=== PATIENT | female | born 1980 | race Caucasian/White ===

== ENCOUNTER 2020-08-29 20:10 | Emergency (ER) | payer SELFPAY ==
--- NOTE | 2020-08-29 20:52 | EDM.PDOC ---
ED HPI GENERAL MEDICAL PROBLEM - General Chief Complaint: Chest Pain Stated Complaint: CHEST PRESSURE NUMBNESS TO ARM AND LEG Time Seen by Provider: 08/29/20 20:18 Source of Information: Reports: Patient, RN Notes Reviewed History Limitations: Reports: No Limitations - History of Present Illness INITIAL COMMENTS - FREE TEXT/NARRATIVE: Patient is a 40-year-old female presenting to the emergency department with complaints of chest pressure and left arm and leg numbness. She states the left leg numbness has been going on for a number of weeks. Today upon waking, she has numbness in her left arm as well as chest pressure. She states is not really painful, but she has to make an effort to take a deep breath. 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 S She was started on gabapentin for this. he verbalized that when she had Covid last year, she also lost part of her hearing, however that did return. She also reports increased falls over the last few weeks. States she has been falling 1-2 times per week and that she often feels off balance. She has decreased sensation to her right and left upper extremities. States she has scratches on her right arm from working on a sushma wire fence and that she did not feel them when it happened. She does not feel sharp sensation to either of her upper extremities. Denies any motor deficits to the upper or lower extremities. States that her strength is the same. She had problems with intermittent extremity numbness with she had complex migraines, however it as been many years since she had those as they stopped when she had her hysterectomy. Patient has a history of numerous blood clots with a diagnosis factor V Leiden and she is currently on Coumadin. Her INR was last checked a few weeks ago. States she was scheduled to have it checked the end of last week, however she did not. Her primary care provider is Dr. Pearson in [place], [place]. Middle Chest Pain Score (Numeric/FACES): 4 - Related Data Allergies Allergy/AdvReac Type Severity Reaction Status Date / Time gluten Allergy Other Verified 08/29/20 20:21 Home Meds: Home Meds Amitriptyline [Elavil] 25 mg PO DAILY 08/29/20 [History] Citalopram Hydrobromide [Celexa] 20 mg PO DAILY 08/29/20 [History] Cyanocobalamin (Vitamin B12) [Vitamin B12] 2,000 mcg PO DAILY 08/29/20 [History] Gabapentin [Neurontin] 100 mg PO BEDTIME 08/29/20 [History] Propranolol [Inderal] 10 mg PO DAILY 08/29/20 [History] Warfarin [Coumadin] 5 mg PO SUMOFRSA 08/29/20 [History] Warfarin [Coumadin] 7.5 mg PO TUWETH 08/29/20 [History] Past Medical History Cardiovascular History: Reports: Hypertension Respiratory History: Reports: PE, Other (See Below) Other Respiratory History: pulmonary infarct Psychiatric History: Reports: Anxiety, Depression Hematologic History: Reports: Anticoagulation Therapy, B12 Deficiency - Past Surgical History Female Surgical History: Reports: Hysterectomy Social & Family History - Tobacco Use Tobacco Use Status *Q: Current Every Day Tobacco User Years of Tobacco use: 25 Packs/Tins Daily: 0.5 - Recreational Drug Use Recreational Drug Use: No ED ROS GENERAL - Review of Systems Review Of Systems: See Below Constitutional: Reports: No Symptoms. Denies: Fever, Chills HEENT: Reports: No Symptoms Respiratory: Reports: Shortness of Breath. Denies: Cough Cardiovascular: Reports: Chest Pain (pressure). Denies: Dyspnea on Exertion, Lightheadedness, Palpitations, Syncope Endocrine: Reports: No Symptoms GI/Abdominal: Reports: No Symptoms : Reports: No Symptoms Musculoskeletal: Reports: No Symptoms Neurological: Reports: Dizziness (intermittent for weeks), Numbness (left arm and left leg), Gait Disturbance (unsteady at times. Falls 1-2 x per week.). Denies: Confusion, Seizure, Syncope, Trouble Speaking, Difficulty Walking, Change in Speech Psychiatric: Reports: No Symptoms Hematologic/Lymphatic: Reports: No Symptoms Immunologic: Reports: No Symptoms ED EXAM, GENERAL - Physical Exam Exam: See Below Exam Limited By: No Limitations General Appearance: Alert, WD/WN, No Apparent Distress Respiratory/Chest: No Respiratory Distress, Lungs Clear, Normal Breath Sounds, No Accessory Muscle Use, Chest Non-Tender Cardiovascular: Normal Peripheral Pulses, Regular Rate, Rhythm, No Edema, No Gallop, No JVD, No Murmur, No Rub GI/Abdominal: Normal Bowel Sounds, Soft, Non-Tender, No Organomegaly, No Diste ntion, No Abnormal Bruit, No Mass Extremities: Normal Inspection, Normal Range of Motion, Non-Tender, Normal Capillary Refill, No Pedal Edema Neurological: Alert, Oriented, CN II-XII Intact, Normal Cognition, Normal Gait, Normal Reflexes, Other (decreased sensation to sharp stimulu of the bilateral upper extremities. Full, equal strength bilaterally to upper and lower extremities.) Psychiatric: Normal Affect, Normal Mood Skin Exam: Warm, Dry, Intact, Normal Color, No Rash #1 Interpretation EKG Date: 08/29/20 Time: 20:18 Rhythm: NSR Rate (Beats/Min): 96 [place]: LAD-Left [place] Deviation P-Wave: Present QRS: Normal ST-T: Normal QT: Normal Course - Vital Signs Last Recorded V/S: Last Vital Signs Temp 98.4 F 08/29/20 20:18 Pulse 86 08/29/20 22:03 Resp 24 H 08/29/20 22:03 BP 113/81 08/29/20 22:03 Pulse Ox 95 08/29/20 22:03 - Orders/Labs/Meds Orders: Active Orders 24 hr Category Date Time Status Chest 2V [CR] Stat Exams 08/29/20 20:22 Taken Head wo Cont [CT] Stat Exams 08/29/20 20:41 Taken Labs: Laboratory Tests 08/29/20 08/29/20 08/29/20 Range/Units 20:34 20:34 20:34 WBC 6.42 (3.98-10.04) K/mm3 RBC 4.55 (3.98-5.22) M/mm3 Hgb 13.1 (11.2-15.7) gm/dl Hct 40.9 (34.1-44.9) % MCV 89.9 (79.4-94.8) fl MCH 28.8 (25.6-32.2) pg MCHC 32.0 L (32.2-35.5) g/dl RDW Std Deviation 43.9 (36.4-46.3) fL Plt Count 262 (182-369) K/mm3 MPV 10.0 (9.4-12.3) fl Neut % (Auto) 39.0 (34.0-71.1) % Lymph % (Auto) 42.7 (19.3-51.7) % [place] % (Auto) 11.4 (4.7-12.5) % Eos % (Auto) 5.8 (0.7-5.8) Baso % (Auto) 0.9 (0.1-1.2) % Neut # (Auto) 2.51 (1.56-6.13) K/mm3 Lymph # (Auto) 2.74 (1.18-3.74) K/mm3 [place] # (Auto) 0.73 H (0.24-0.36) K/mm3 Eos # (Auto) 0.37 H (0.04-0.36) K/mm3 Baso # (Auto) 0.06 (0.01-0.08) K/mm3 ESR (0-20) mm/hr PT (9.7-12.0) SECONDS INR D-Dimer, Quantitative < 0.19 L (0.19-0.50) mg/L Sodium 144 (136-145) mEq/L Potassium 4.1 (3.5-5.1) mEq/L Chloride 107 (98-107) mEq/L Carbon Dioxide 25 (21-32) mEq/L Anion Gap 16.1 H (5-15) BUN 22 H (7-18) mg/dL Creatinine 1.0 (0.55-1.02) mg/dL Est Cr Clr Drug Dosing TNP Estimated GFR (MDRD) > 60 (>60) mL/min BUN/Creatinine Ratio 22.0 H (14-18) Glucose 113 H (74-106) mg/dL Calcium 9.4 (8.5-10.1) mg/dL Total Bilirubin 0.2 (0.2-1.0) mg/dL AST 17 (15-37) U/L ALT 30 (14-59) U/L Alkaline Phosphatase 86 (46-116) U/L Troponin I < 0.017 (0.00-0.056) ng/mL C-Reactive Protein < 0.2 (<1.0) mg/dL Total Protein 7.4 (6.4-8.2) g/dl Albumin 3.9 (3.4-5.0) g/dl Globulin 3.5 gm/dL Albumin/Globulin Ratio 1.1 (1-2) 08/29/20 08/29/20 Range/Units 20:34 20:34 WBC (3.98-10.04) K/mm3 RBC (3.98-5.22) M/mm3 Hgb (11.2-15.7) gm/dl Hct (34.1-44.9) % MCV (79.4-94.8) fl MCH (25.6-32.2) pg MCHC (32.2-35.5) g/dl RDW Std Deviation (36.4-46.3) fL Plt Count (182-369) K/mm3 MPV (9.4-12.3) fl Neut % (Auto) (34.0-71.1) % Lymph % (Auto) (19.3-51.7) % [place] % (Auto) (4.7-12.5) % Eos % (Auto) (0.7-5.8) Baso % (Auto) (0.1-1.2) % Neut # (Auto) (1.56-6.13) K/mm3 Lymph # (Auto) (1.18-3.74) K/mm3 [place] # (Auto) (0.24-0.36) K/mm3 Eos # (Auto) (0.04-0.36) K/mm3 Baso # (Auto) (0.01-0.08) K/mm3 ESR 9 (0-20) mm/hr PT 18.1 H (9.7-12.0) SECONDS INR 1.71 D-Dimer, Quantitative (0.19-0.50) mg/L Sodium (136-145) mEq/L Potassium (3.5-5.1) mEq/L Chloride (98-107) mEq/L Carbon Dioxide (21-32) mEq/L Anion Gap (5-15) BUN (7-18) mg/dL Creatinine (0.55-1.02) mg/dL Est Cr Clr Drug Dosing Estimated GFR (MDRD) (>60) mL/min BUN/Creatinine Ratio (14-18) Glucose (74-106) mg/dL Calcium (8.5-10.1) mg/dL Total Bilirubin (0.2-1.0) mg/dL AST (15-37) U/L ALT (14-59) U/L Alkaline Phosphatase (46-116) U/L Troponin I (0.00-0.056) ng/mL C-Reactive Protein (<1.0) mg/dL Total Protein (6.4-8.2) g/dl Albumin (3.4-5.0) g/dl Globulin gm/dL Albumin/Globulin Ratio (1-2) - Re-Assessments/Exams Free Text/Narrative Re-Assessment/Exam: Patient is a 40-year-old female presenting to the emergency department with complaints of left leg numbness which has been going on for a number of weeks, left arm numbness which began today, and chest pressure. She describes a number of other symptoms including lack of sharp sensation to her bilateral upper ext remities, neuropathy of her bilateral lower extremities, and increased falls for the last few weeks. She states that after she had Covid last year, she developed neuropathy and has been having these intermittent problems since that time. Her neurologic exam with the exception of sharp sensation is grossly unremarkable. Strength of her upper and lower extremities are equal and strong bilaterally. I have ordered blood work including CBC, CMP, CRP, ESR, D-dimer, PT/INR, and CRP. Also order chest x-ray and a head CT to be completed. 08/29/20 21:47 Hematology is grossly unremarkable. D-dimer and troponin are both undetectable. INR is subtherapeutic at 1.71. CRP is normal. Head CT shows no acute intracranial abnormalities. Chest x-ray is normal. Discussed with patient that I would recommend an outpatient MRI to assess for demyelinating condition such as MS or other neurologic abnormalities given her wide range of symptoms. Patient states that she does not have insurance right now, therefore she does not think she will be approved for an MRI. Unfortunately we do not have MRI services available here emergently. She states she will contact her primary care, Dr. Pearson, tomorrow to discuss her INR and adjust her Coumadin as the wide number of neurologic symptoms she is having. Discharge instructions as documented. Departure - Departure Time of Disposition: 21:50 Disposition: Home, Self-Care 01 Condition: Good Clinical Impression: Paresthesia Instructions: Paresthesia, [id number] Referrals: PCP,Not In Area [Primary Care Provider] - Forms: ED Department Discharge Additional Instructions: You were seen in the emergency department today for left leg numbness for the past few weeks, left arm numbness that started today, decreased sensation of your upper extremities, increasing falls over the last few weeks, and chest pressure. Work-up included blood work, EKG, chest x-ray, and head CT. Results of your work-up were found to be normal. Your INR is slightly subtherapeutic at 1.7, therefore would recommend contacting your primary care tomorrow to have your Coumadin dose adjusted as needed. I would also recommend discussing with him the need for an MRI given your wide range of neurologic symptoms. Continue take your medications as previously prescribed. If you should experience any new or worsening symptoms of concern, please do not hesitate to return to the emergency department for reevaluation. Sepsis Event Note (ED) - Evaluation Sepsis Screening Result: No Definite Risk - Focused Exam Vital Signs: Vital Signs Temp Pulse Resp BP Pulse Ox 08/29/20 22:03 86 24 H 113/81 95 08/29/20 20:18 98.4 F 93 17 122/83 96 - My Orders Last 24 Hours: My Active Orders 08/29/20 20:22 Chest 2V [CR] Stat 08/29/20 20:41 Head wo Cont [CT] Stat - Assessment/Plan Last 24 Hours: My Active Orders 08/29/20 20:22 Chest 2V [CR] Stat 08/29/20 20:41 Head wo Cont [CT] Stat
--- NOTE | 2020-08-30 07:41 | CT ---
Head CT Technique: Multiple axial sections through the brain were obtained. Intravenous contrast was not utilized. Comparison: No prior intracranial imaging is available. Findings: Ventricles along with basal cisterns and sulci over the convexities are within normal limits for the patient's age. No abnormal parenchymal densities are seen. No evidence of intracranial hemorrhage. No midline shift or mass-effect is appreciated. Minimal mucosal thickening is seen within the posterior sphenoid sinus which is chronic. Nothing acute is seen within the visualized mastoid sinuses. No acute calvarial abnormality is appreciated. Impression: 1. Minimal sinus finding believed to be chronic. 2. Nothing acute is appreciated on noncontrast head CT study. Diagnostic code #2 I agree with preliminary report from [facility], finalized on 08/29/20, 10:12 PM [employer]
--- NOTE | 2020-08-30 12:34 | CR ---
Chest: PA and lateral views of the chest were obtained. Comparison: No previous study. Heart size and mediastinum are normal. Lungs are clear of acute parenchymal change. Bony structures appear within normal limits for the patient's age. Impression: 1. Nothing acute is appreciated on to the chest x-ray. Diagnostic code #1
== END 2020-08-29 22:03 | disposition home or self-care (01) ==
LOC: JD.ED 20:10
DX: R20.2 Paresthesia of skin (principal); Z91.048 Other nonmedicinal substance allergy status; Z86.711 Personal history of pulmonary embolism; Z79.01 Long term (current) use of anticoagulants; Z79.899 Other long term (current) drug therapy; Z72.0 Tobacco use
CPT/HCPCS: 36415; 70450; 70450-26; 71046; 71046-26; 80053; 84484; 85025; 85379; 85610; 85652; 86140; 93005; 93010; 99284; 99285-25

== ENCOUNTER 2020-10-26 20:26 | Emergency (ER) | payer OTHER ==
[2020-10-26] MEDS ORDERED: Albuterol/Ipratropium 3.0-0.5 MG/3 ML Neb Soln NEB ONE (21:18)
--- NOTE | 2020-10-26 21:19 | EDM.PDOC ---
ED HPI GENERAL MEDICAL PROBLEM - General Chief Complaint: Respiratory Problem Stated Complaint: COUGH SOB Time Seen by Provider: 10/26/20 20:45 Source of Information: Reports: Patient, Family (Daughter) History Limitations: Reports: No Limitations - History of Present Illness INITIAL COMMENTS - FREE TEXT/NARRATIVE: Ms. Weir is a pleasant 40-year-old woman who now presents to the ED stating that she developed cold-like symptoms, including rhinorrhea and a sore throat this past 10/22/2020. She has been taking ibuprofen, Mucinex, DayQuil, and NyQuil, which she states worked for short period of time. Around 19:00 this evening, she states that she developed a cough productive of greenish sputum, along with dyspnea, slight wheezing, lightheadedness, and headache. Her pulmonary symptoms are not better or worse if she is upright versus supine. She has not had a recent fever. No recent nausea, vomiting, constipation, or diarrhea. The patient states that she has had similar dyspnea, coughing, and wheezing in the past. She states that she was diagnosed with COVID-19 in August 2019, and at that time treated with albuterol. She has a history of heavy smoking for 25 years, but does not have a diagnosis of COPD, and does not ordinarily take pulmonary medications. Here in the ED, the patient is found to be hemodynamically stable, afebrile, saturating 100% on room air. Prior to Thursday, the patient denies having a recent fever, chills, sore throat, ear pain, nasal or sinus congestion, cough, dyspnea, chest pain, palpitations, nausea, vomiting, constipation, diarrhea, abdominal pain, urinary symptoms, recent weight gain or weight loss, recent bloody bowel movements or black bowel movements, recent joint aches, headaches, or rashes. I reviewed the PMHx/PSHx/SocHx, which was reviewed with the patient by the RN. The patient's PCP is Dr. Sher Pearson, in [place], [place]. - Related Data Allergies Allergy/AdvReac Type Severity Reaction Status Date / Time gluten Allergy Other Verified 10/26/20 20:38 Home Meds: Home Meds Amitriptyline [Elavil] 25 mg PO DAILY 08/29/20 [History] Citalopram Hydrobromide [Celexa] 20 mg PO DAILY 08/29/20 [History] Cyanocobalamin (Vitamin B12) [Vitamin B12] 2,000 mcg PO DAILY 08/29/20 [History] Gabapentin [Neurontin] 100 mg PO BEDTIME 08/29/20 [History] Propranolol [Inderal] 10 mg PO DAILY 08/29/20 [History] Warfarin [Coumadin] 5 mg PO SUMOFRSA 08/29/20 [History] Warfarin [Coumadin] 7.5 mg PO TUWETH 08/29/20 [History] Past Medical History Cardiovascular History: Reports: Blood Clots/VTE/DVT, Hypertension 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 Psychiatric History: Reports: Anxiety, Depression Hematologic History: Reports: Anticoagulation Therapy, B12 Deficiency, Other (See Below) (Factor V Leiden deficiency) - Infectious Disease History Infectious Disease History: Reports: Novel Coronavirus (dx'd Aug 2019) - Past Surgical History Female Surgical History: Reports: Hysterectomy Social & Family History - Tobacco Use Tobacco Use Status *Q: Current Every Day Tobacco User Tobacco Use Within Last Twelve Months: Vaping (Nicotine) Years of Tobacco use: 25 Packs/Tins Daily: 1 Month/Year Tobacco Last Used: Started smoking at 15 yrs old - Alcohol Use Alcohol Use History: Yes Alcohol Use Frequency: Socially - Recreational Drug Use Recreational Drug Use: No - Living Situation & Occupation Living situation: Reports: , with Family Occupation: Employed ([employer]) ED ROS GENERAL - Review of Systems Review Of Systems: Comprehensive ROS is negative, except as noted in HPI. ED EXAM, GENERAL - Physical Exam Exam: See Below Exam Limited By: No Limitations General Appearance: Alert, WD/WN, No Apparent Distress Eye Exam: Bilateral Eye: EOMI, Normal Inspection Ears: Normal External Exam, Hearing Grossly Normal Nose: Normal Inspection Throat/Mouth: Normal Inspection, Normal Lips, Normal Voice, No Airway Compromise Head: Atraumatic, Normocephalic Neck: Normal Inspection, Supple, Non-Tender, Full Range of Motion. No: Lymphadenopathy (L), Lymphadenopathy (R) Respiratory/Chest: No Respiratory Distress, No Accessory Muscle Use, Crackles (fine bibasilar). No: Decreased Breath Sounds, Rhonchi, Wheezing, Stridor, Prolonged Expiration Cardiovascular: Normal Peripheral Pulses, Regular Rate, Rhythm, No Edema, No Gallop, No JVD, No Murmur, No Rub Peripheral Pulses: 3+: Radial (L), Radial (R) GI/Abdominal: Normal Bowel Sounds, Soft, Non-Tender, No Organomegaly, No Distention, No Abnormal Bruit, No Mass Back Exam: Normal Inspection, Full Range of Motion, NT Extremities: Normal Inspection, Normal Range of Motion, No Pedal Edema, Normal Capillary Refill Neurological: Alert, Oriented, Normal Cognition, No Motor/Sensory Deficits Psychiatric: Normal Affect Skin Exam: Warm, Dry, Intact, Normal Color, No Rash Course - Vital Signs Last Recorded V/S: Last Vital Signs Temp 36.4 C 10/26/20 20:39 Pulse 85 10/26/20 20:39 Resp 18 10/26/20 20:39 BP 111/78 10/26/20 20:39 Pulse Ox 100 10/26/20 21:41 - Orders/Labs/Meds Orders: Active Orders 24 hr Category Date Time Status RT Aerosol Therapy [RC] ASDIRECTED Care 10/26/20 21:18 Active Chest 2V [CR] Stat Exams 10/26/20 21:13 Taken Labs: Laboratory Tests 10/26/20 10/26/20 10/26/20 Range/Units 21:15 21:29 21:29 WBC 5.64 (3.98-10.04) K/mm3 RBC 4.04 (3.98-5.22) M/mm3 Hgb 11.8 (11.2-15.7) gm/dl Hct 36.5 (34.1-44.9) % MCV 90.3 (79.4-94.8) fl MCH 29.2 (25.6-32.2) pg MCHC 32.3 (32.2-35.5) g/dl RDW Std Deviation 43.4 (36.4-46.3) fL Plt Count 221 (182-369) K/mm3 MPV 10.2 (9.4-12.3) fl Neutrophils % (Manual) 45 (40-60) % Band Neutrophils % 2 (0-10) % Lymphocytes % (Manual) 38 (20-40) % Atypical Lymphs % 0 % Monocytes % (Manual) 9 (2-10) % Eosinophils % (Manual) 6 H (0.7-5.8) % Basophils % (Manual) 0 L (0.1-1.2) Platelet Estimate Adequate RBC Morph Comment Normal PT 13.9 H (9.7-12.0) SECONDS INR 1.31 APTT 26.8 (21.7-31.4) SECONDS D-Dimer, Quantitative < 0.19 L (0.19-0.50) mg/L Sodium (136-145) mEq/L Potassium (3.5-5.1) mEq/L Chloride (98-107) mEq/L Carbon Dioxide (21-32) mEq/L Anion Gap (5-15) BUN (7-18) mg/dL Creatinine (0.55-1.02) mg/dL Est Cr Clr Drug Dosing mL/min Estimated GFR (MDRD) (>60) mL/min BUN/Creatinine Ratio (14-18) Glucose (74-106) mg/dL Lactic Acid (0.4-2.0) mmol/L Calcium (8.5-10.1) mg/dL Magnesium (1.8-2.4) mg/dl Total Bilirubin (0.2-1.0) mg/dL AST (15-37) U/L ALT (14-59) U/L Alkaline Phosphatase (46-116) U/L Total Protein (6.4-8.2) g/dl Albumin (3.4-5.0) g/dl Globulin gm/dL Albumin/Globulin Ratio (1-2) Influenza Type A RNA Negative (NEGATIVE) Influenza Type B RNA Negative (NEGATIVE) SARS-CoV-2 RNA (BRAD) Negative (NEGATIVE) 10/26/20 10/26/20 Range/Units 21:29 21:29 WBC (3.98-10.04) K/mm3 RBC (3.98-5.22) M/mm3 Hgb (11.2-15.7) gm/dl Hct (34.1-44.9) % MCV (79.4-94.8) fl MCH (25.6-32.2) pg MCHC (32.2-35.5) g/dl RDW Std Deviation (36.4-46.3) fL Plt Count (182-369) K/mm3 MPV (9.4-12.3) fl Neutrophils % (Manual) (40-60) % Band Neutrophils % (0-10) % Lymphocytes % (Manual) (20-40) % Atypical Lymphs % % Monocytes % (Manual) (2-10) % Eosinophils % (Manual) (0.7-5.8) % Basophils % (Manual) (0.1-1.2) Platelet Estimate RBC Morph Comment PT (9.7-12.0) SECONDS INR APTT (21.7-31.4) SECONDS D-Dimer, Quantitative (0.19-0.50) mg/L Sodium 142 (136-145) mEq/L Potassium 3.4 L (3.5-5.1) mEq/L Chloride 107 (98-107) mEq/L Carbon Dioxide 20 L (21-32) mEq/L Anion Gap 18.4 H (5-15) BUN 19 H (7-18) mg/dL Creatinine 0.8 (0.55-1.02) mg/dL Est Cr Clr Drug Dosing 91.81 mL/min Estimated GFR (MDRD) > 60 (>60) mL/min BUN/Creatinine Ratio 23.8 H (14-18) Glucose 90 (74-106) mg/dL Lactic Acid 1.2 (0.4-2.0) mmol/L Calcium 8.7 (8.5-10.1) mg/dL Magnesium 2.2 (1.8-2.4) mg/dl Total Bilirubin 0.4 (0.2-1.0) mg/dL AST 17 (15-37) U/L ALT 24 (14-59) U/L Alkaline Phosphatase 58 (46-116) U/L Total Protein 6.5 (6.4-8.2) g/dl Albumin 3.6 (3.4-5.0) g/dl Globulin 2.9 gm/dL Albumin/Globulin Ratio 1.2 (1-2) Influenza Type A RNA (NEGATIVE) Influenza Type B RNA (NEGATIVE) SARS-CoV-2 RNA (BRAD) (NEGATIVE) Meds: Medications Discontinued Medications Generic Name Dose Route Start Last Admin Trade Name Freq PRN Reason Stop Dose Admin Albuterol/Ipratropium 3 ml 10/26/20 21:18 10/26/20 21:39 Albuterol/Ipratropium 3.0-0.5 Mg/3 Ml Neb Soln NEB 10/26/20 21:19 3 ml ONETIME ONE Administration - Re-Assessments/Exams Free Text/Narrative Re-Assessment/Exam: 10/26/20 21:16 As above, the patient had cold symptoms, including rhinorrhea and a sore throat since Thursday, then developed a cough productive of greenish sputum, dyspnea, and some wheezing, along with lightheadedness and a headache around 19:00 this evening. She is afebrile, saturating 100% on room air. Her physical exam reveals some fine end-expiratory wheezing, particularly at the bases. She is likely suffering from acute bronchitis, although her long history of smoking leads to concern of a COPD exacerbation, as well. I have ordered a work-up that includes numerous blood tests, a swab for the SARS-CoV-2 virus and influenza A + B viruses, and a chest x-ray. In the meantime, the patient will be given a DuoNeb, to see if that improves her wheezing. 10/26/20 21:46 Two-view chest radiograph appears to be grossly normal. The cardiac silhouette is within normal limits. No pulmonary vascular congestion. No pleural effusions. No focal infiltrate. No pneumothorax. There is hyperinflation and bilateral diaphragmatic flattening, consistent with COPD. Formal read per the Radiologist pending. 10/26/20 22:39 The patient's CBC is unremarkable. Her CMP is remarkable for slight hypokalemia of 3.4, and anion gap mildly elevated at 18.4 with a bicarbonate mildly depressed at 20, a BUN slightly elevated at 19, but with a Cr normal at 0.8, and the remainder of her CMP being unremarkable. Her magnesium level is within normal limits at 2.2. Her lactic acid level is within normal limits at 1.2. Her D-dimer is undetectably low. Her INR is subtherapeutic at 1.39, with a PT of 13.9. Her swab for the SARS-CoV-2 virus and influenza A + B viruses has returned negative for all. 10/26/20 22:46 Test results discussed with the patient and her daughter. The patient states that she feels better following the DuoNeb, and is no longer wheezing. On auscultation of her lungs, I agree; I no longer hear any wheezing. As above, hillary's work-up is grossly unremarkable. While I cannot diagnose COPD based on a chest x-ray or history, I suspect that the patient has mild COPD, exacerbated by a viral URI. I explained to the patient that there are no treatments for viral URI, that it will have to run its course. I recommended that she do her best to quit smoking, and, once she gets insurance in a couple of months, to establish a PCP and undergo PFTs to confirm a diagnosis of COPD. Departure - Departure Time of Disposition: 22:49 Disposition: Home, Self-Care 01 Condition: Good Clinical Impression: Viral URI with cough - Discharge Information *PRESCRIPTION DRUG MONITORING PROGRAM REVIEWED*: Not Applicable *COPY OF PRESCRIPTION DRUG MONITORING REPORT IN PATIENT DARLENE: Not Applicable Referrals: Sher Pearson, [Primary Care Provider] - Forms: ED Department Discharge, ED Return to Work/School Form Additional Instructions: You were seen in the emergency room after developing cold-like symptoms on Thursday, then shortness of breath with a cough, wheezing, lightheadedness, and headache this evening. Work-up in the ER included numerous blood tests, a swab for the SARS-CoV-2 virus and influenza A + B viruses, and a chest x-ray. Your work-up found your INR (Coumadin level) to be subtherapeutic at 1.39. We recommend that you discuss this with whoever prescribes your Coumadin, as you will likely need to be on a higher dose. The remainder of your work-up was unremarkable. You do not have pneumonia. You do not have a blood clot in your lungs. Your swab for the SARS-CoV-2 virus and influenza A + B viruses returned negative. Based on your history, physical exam, and ER tests, we suspect that you have mild underlying COPD, exacerbated by a viral URI (common cold). Unfortunately, there are no medicines to get rid of a viral URI - it will have to run its course. We recommend that, when possible, you follow-up with your PCP to arrange for pulmonary function tests, to determine if you have COPD or not. An albuterol MDI and space chamber were provided to you. You may take 1 to 2 inhalations of albuterol up to every 4 hours, as needed for shortness of breath and wheezing, with or without a cough. Always use the space chamber whenever you use the MDI. A note to return to work has been provided to you. If any other problems, please do not hesitate to return to the ER. Sepsis Event Note (ED) - Evaluation Sepsis Screening Result: No Definite Risk - Focused Exam Vital Signs: Vital Signs Temp Pulse Resp BP Pulse Ox Pulse Ox 10/26/20 21:41 100 10/26/20 20:39 36.4 C 85 18 111/78 100 - My Orders Last 24 Hours: My Active Orders 10/26/20 21:13 Chest 2V [CR] Stat 10/26/20 21:18 RT Aerosol Therapy [RC] ASDIRECTED - Assessment/Plan Last 24 Hours: My Active Orders 10/26/20 21:13 Chest 2V [CR] Stat 10/26/20 21:18 RT Aerosol Therapy [RC] ASDIRECTED
[2020-10-26 22:14] LABS: CORONAVIRUS COVID-19 NAA NEGATIVE (NEGATIVE)
[2020-10-26] MEDS ORDERED: Albuterol 6.7 GM Inhaler INH PRN (22:56)
--- NOTE | 2020-10-28 09:13 | CR ---
Chest: 2 views of the chest were obtained. Comparison: Prior chest x-ray of 08/29/20. Heart size and mediastinum are within normal limits. Lung markings are slightly increased which is most likely technique related. No acute parenchymal change is seen. Minimal scoliosis is noted within the spine. No acute osseous abnormality is appreciated. Impression: 1. Findings as noted above. 2. Nothing acute is definitely seen. Diagnostic code #2
== END 2020-10-26 23:08 | disposition home or self-care (01) ==
LOC: JD.ED 20:26
DX: J06.9 Acute upper respiratory infection, unspecified (principal); I10 Essential (primary) hypertension; F17.290 Nicotine dependence, other tobacco product, uncomplicated; Z20.822 Contact with and (suspected) exposure to COVID-19; Z91.048 Other nonmedicinal substance allergy status; Z79.01 Long term (current) use of anticoagulants; Z79.899 Other long term (current) drug therapy; Z86.718 Personal history of other venous thrombosis and embolism
CPT/HCPCS: 0240U; 36415; 71046; 80053; 83605; 83735; 85007; 85027; 85379; 85610; 85730; 94640; 99285; A9270; 99283; J7620-GY

== ENCOUNTER 2020-11-21 06:00 | Emergency (ER) | payer SELFPAY ==
[2020-11-21] MEDS ORDERED: Ketorolac 30 MG/ML SDV IVPUSH SCH (06:45)
--- NOTE | 2020-11-21 07:05 | EDM.PDOC ---
ED HPI GENERAL MEDICAL PROBLEM - General Chief Complaint: Chest Pain Stated Complaint: CHEST PAIN SOB Time Seen by Provider: 11/21/20 06:23 Source of Information: Reports: Patient, RN Notes Reviewed - History of Present Illness INITIAL COMMENTS - FREE TEXT/NARRATIVE: 40 yr old female had onset of R shoulder pain 3 days ago. Onset of pleuritic pain R upper chest last evening worse this morning. She does have hx of PE about 5 yrs ago, continues on coumadin. She also does smoke so does have chronic nonprod. cough with that. No recent fever or chills. Did feel short of breath earlier this AM, now better. Right Chest Pain Score (Numeric/FACES): 7 - Related Data Allergies Allergy/AdvReac Type Severity Reaction Status Date / Time gluten Allergy Other Verified 11/21/20 06:12 Home Meds: Home Meds Amitriptyline [Elavil] 25 mg PO DAILY 08/29/20 [History] Citalopram Hydrobromide [Celexa] 20 mg PO DAILY 08/29/20 [History] Cyanocobalamin (Vitamin B12) [Vitamin B12] 2,000 mcg PO DAILY 08/29/20 [History] Warfarin [Coumadin] 5 mg PO MOFRSA 08/29/20 [History] Warfarin [Coumadin] 7.5 mg PO SUTUWETH 08/29/20 [History] Past Medical History Cardiovascular History: Reports: Blood Clots/VTE/DVT, Hypertension Respiratory History: Reports: PE, Other (See Below) Other Respiratory History: pulmonary infarct, Possible COPD needs PFT's Other Gastrointestinal History: gluten ataxia 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 (See Below) Other EARLY CHILDHOOD EDUCATION COORDINATOR History: PMDD Other Musculoskeletal History: gluten ataxia Psychiatric History: Reports: Anxiety, Depression Hematologic History: Reports: Anticoagulation Therapy, B12 Deficiency, Other (See Below) 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 - Infectious Disease History Infectious Disease History: Reports: Novel Coronavirus - Past Surgical History Female Surgical History: Reports: Hysterectomy Social & Family History - Tobacco Use Tobacco Use Status *Q: Current Every Day Tobacco User Years of Tobacco use: 25 Packs/Tins Daily: 0.5 - Recreational Drug Use Recreational Drug Use: No - Living Situation & Occupation Living situation: Reports: , with Family Occupation: Employed ([employer] ED ROS GENERAL - Review of Systems Review Of Systems: See Below Constitutional: Denies: Fever, Chills, Diaphoresis HEENT: Reports: No Symptoms Respiratory: Reports: Pleuritic Chest Pain, Cough. Denies: Sputum Cardiovascular: Reports: Chest Pain GI/Abdominal: Denies: Abdominal Pain, Nausea, Vomiting Musculoskeletal: Reports: Shoulder Pain. Denies: Arm Pain, Back Pain Skin: Reports: No Symptoms Neurological: Reports: No Symptoms ED EXAM, GENERAL - Physical Exam Exam: See Below General Appearance: Alert, No Apparent Distress Head: Atraumatic Neck: Supple Respiratory/Chest: No Respiratory Distress, Lungs Clear, Normal Breath Sounds, Other (tender R ant. chest) Cardiovascular: Regular Rate, Rhythm GI/Abdominal: Soft, Non-Tender Extremities: Normal Inspection, Normal Range of Motion. No: Leg Pain, Increased Warmth, Redness Neurological: Alert, Oriented, No Motor/Sensory Deficits Skin Exam: Warm, Dry, Normal Color #1 Interpretation EKG Date: 11/21/20 Rhythm: NSR Toyah: Normal P-Wave: Present QRS: Normal ST-T: Depressed (t wave inversion inf. leads and slight st depression inf. leads) Course - Vital Signs Last Recorded V/S: Last Vital Signs Temp 97.2 F 11/21/20 06:12 Pulse 86 11/21/20 06:12 Resp 19 11/21/20 06:12 BP 109/85 11/21/20 06:12 Pulse Ox 100 11/21/20 06:12 - Orders/Labs/Meds Orders: Active Orders 24 hr Category Date Time Status EKG Documentation Completion [RC] ASDIRECTED Care 11/21/20 06:04 Active Ketorolac [Toradol] Med 11/21/20 06:45 Active 30 mg IVPUSH ONETIME EKG 12 Lead [EK] Stat Ther 11/21/20 06:04 Ordered Medication Orders Ketorolac Tromethamine (Ketorolac 30 Mg/Ml Sdv) 30 mg IVPUSH ONETIME [facility] Last Admin: 11/21/20 06:46 Dose: 30 mg Documented by: LAKEISHA Labs: Laboratory Tests 11/21/20 11/21/20 Range/Units 06:34 06:34 PT 24.3 H D (9.7-12.0) SECONDS INR 2.31 D-Dimer, Quantitative < 0.19 L (0.19-0.50) mg/L Meds: Medications Generic Name Dose Route Start Last Admin Trade Name Arthur PRN Reason Stop Dose Admin Ketorolac Tromethamine 30 mg 11/21/20 06:45 11/21/20 06:46 Ketorolac 30 Mg/Ml Sdv IVPUSH 30 mg ONETIME BG Administration - Re-Assessments/Exams Free Text/Narrative Re-Assessment/Exam: 11/21/20 07:51 CXR nl, EKG nl, D Dimer neg. INR therapeutic Departure - Departure Time of Disposition: 07:30 Disposition: Home, Self-Care 01 Condition: Fair Clinical Impression: Chest wall pain, Pleurisy Instructions: Pleurisy, [id number] Referrals: PCP,Not In Area [Primary Care Provider] - Forms: ED Department Discharge Additional Instructions: Alternate ice and heat as needed, tylenol up to 3 times daily as needed. Try hard to stop smoking. Follow up clinic as needed if symptoms not resolving as expected. Sepsis Event Note (ED) - Evaluation Sepsis Screening Result: No Definite Risk - Focused Exam Vital Signs: Vital Signs Temp Pulse Resp BP Pulse Ox 11/21/20 06:12 97.2 F 86 19 109/85 100 - My Orders Last 24 Hours: My Active Orders 11/21/20 06:04 EKG Documentation Completion [RC] ASDIRECTED EKG 12 Lead [EK] Stat 11/21/20 06:45 Ketorolac [Toradol] 30 mg IVPUSH ONETIME - Assessment/Plan Last 24 Hours: My Active Orders 11/21/20 06:04 EKG Documentation Completion [RC] ASDIRECTED EKG 12 Lead [EK] Stat 11/21/20 06:45 Ketorolac [Toradol] 30 mg IVPUSH ONETIME
--- NOTE | 2020-11-21 07:34 | CR ---
Chest: AP view of the chest was obtained. Comparison: Prior chest x-ray on 10/26/20. Heart size and mediastinum are normal. Minimal atelectasis is seen within the left lateral costophrenic angle. Lungs otherwise are clear . No acute osseous abnormality is appreciated. Impression: 1. Minimal left basilar atelectasis. 2. Nothing acute is appreciated on frontal chest x-ray. Diagnostic code #2
== END 2020-11-21 07:56 | disposition home or self-care (01) ==
LOC: JD.ED 06:00
DX: R09.1 Pleurisy (principal); I10 Essential (primary) hypertension; Z72.0 Tobacco use; Z91.048 Other nonmedicinal substance allergy status
CPT/HCPCS: 36415; 71045; 85379; 85610; 93005; 96374; 99284; J1885; 93010

== ENCOUNTER 2021-05-18 09:55 | Emergency (ER) | payer BC ==
[2021-05-18] MEDS ORDERED: Sodium Chloride 0.9% 10 ML Syringe FLUSH PRN (10:21)
[2021-05-18] MEDS ORDERED: Sodium Chloride 0.9% 1,000 ML IV SCH (10:30)
[2021-05-18] MEDS ORDERED: Ondansetron 4 MG/2 ML SDV IVPUSH ONE (10:30)
[2021-05-18] MEDS ORDERED: HYDROmorphone 0.5 MG/0.5 ML Syringe IVPUSH ONE (10:31)
--- NOTE | 2021-05-18 11:57 | US ---
Limited abdominal ultrasound: Multiple real-time images of the upper right abdomen were obtained. Comparison: No prior abdominal imaging is available. Findings: Pancreas shows no focal abnormality. Liver shows no abnormality. No biliary duct dilatation is seen. Small hyperechoic abnormality is seen within the cortex of the right kidney measuring 5 mm possibly due to a small calcification. Right kidney shows no hydronephrosis or discrete mass. Proximal aorta shows no aneurysm. Small amount of intraluminal debris appears to be present within the proximal inferior vena cava raising the possibility of mild amount of nonoccluding thrombus. Main portal vein shows normal hepatopedal flow. Impression: 1. Findings suspicious for small amount of non-occlusive thrombus within the proximal inferior vena cava. 2. Small calcification felt to be parenchymal in locality within the right kidney. 3. Other portions of the right upper quadrant abdominal ultrasound are unremarkable. Diagnostic code #3
[2021-05-18] MEDS ORDERED: HYDROmorphone 1 MG/ML Syringe IVPUSH ONE (12:51)
--- NOTE | 2021-05-18 13:21 | EDM.PDOC ---
ED HPI GENERAL MEDICAL PROBLEM - General Chief Complaint: Abdominal Pain Stated Complaint: ABDOMINAL PAIN Time Seen by Provider: 05/18/21 10:23 Source of Information: Reports: Patient History Limitations: Reports: No Limitations - History of Present Illness INITIAL COMMENTS - FREE TEXT/NARRATIVE: The patient presents with epigastric and right upper abdominal pain. This started this morning. She dis have pain to her mid back a couple days ago. She had some nausea and vomiting. She has no fever, chills or cough. She has no dysuria or diarrhea. She has a history of a clotting disorder. She is on a blood thinner. 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 Onset: Gradual Duration: Hour(s): Location: Reports: Abdomen, Back Quality: Reports: Sharp Severity: Severe Improves with: Reports: None Worsens with: Reports: None Associated Symptoms: Reports: Nausea/Vomiting. Denies: Cough, Fever/Chills, Headaches, Shortness of Breath Abdominal Pain Score (Numeric/FACES): 8 - Related Data Allergies Allergy/AdvReac Type Severity Reaction Status Date / Time gluten Allergy Other Verified 05/18/21 10:13 Home Meds: Home Meds Amitriptyline [Elavil] 25 mg PO DAILY 08/29/20 [History] Citalopram Hydrobromide [Celexa] 20 mg PO DAILY 08/29/20 [History] Cyanocobalamin (Vitamin B12) [Vitamin B12] 2,000 mcg PO DAILY 08/29/20 [History] Hydrocodone/Acetaminophen [Hydrocodone-Acetamin 5-325 mg] 1 - 2 each PO Q6H PRN #15 tablet 05/18/21 [Rx] Propranolol [Inderal] 10 mg PO BID 05/18/21 [History] Rivaroxaban [Xarelto] 10 mg PO DAILY 05/18/21 [History] Past Medical History Cardiovascular History: Reports: Blood Clots/VTE/DVT, Hypertension Respiratory History: Reports: PE, Other (See Below) Other Respiratory History: pulmonary infarct, Other Gastrointestinal History: gluten ataxia BRICK SORTER History: Reports: Other (See Below) Other BRICK SORTER History: PMDD Other Musculoskeletal History: gluten ataxia Psychiatric History: Reports: Anxiety, Depression Hematologic History: Reports: Anticoagulation Therapy, B12 Deficiency, Other (See Below) 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 - Infectious Disease History Infectious Disease History: Reports: Novel Coronavirus - Past Surgical History HEENT Surgical History: Reports: Other (See Below) Other HEENT Surgeries/Procedures: septum repair Female Surgical History: Reports: Hysterectomy Social & Family History - Tobacco Use Tobacco Use Status *Q: Current Every Day Tobacco User Years of Tobacco use: 26 Packs/Tins Daily: 0.5 - Caffeine Use Caffeine Use: Reports: Coffee, Energy Drinks, Soda, Tea - Recreational Drug Use Recreational Drug Use: No - Living Situation & Occupation Living situation: Reports: , with Family Occupation: Employed ([employer]) ED ROS GENERAL - Review of Systems Review Of Systems: See Below Constitutional: Reports: No Symptoms HEENT: Reports: No Symptoms Respiratory: Reports: No Symptoms Cardiovascular: Reports: No Symptoms Endocrine: Reports: No Symptoms GI/Abdominal: Reports: Abdominal Pain, Nausea, Vomiting Musculoskeletal: Reports: Back Pain ED EXAM, GI/ABD - Physical Exam Exam: See Below Exam Limited By: No Limitations General Appearance: Alert, No Apparent Distress Ears: Normal External Exam Nose: Normal Inspection Head: Atraumatic, Normocephalic Neck: Normal Inspection Respiratory/Chest: No Respiratory Distress, Lungs Clear, Normal Breath Sounds Cardiovascular: Regular Rate, Rhythm, No Edema, No Murmur GI/Abdominal Exam: Soft, No Organomegaly, No Mass, Tender (Moderate tenderness to the upper abdomen and RUQ) Course - Vital Signs Last Recorded V/S: Last Vital Signs Temp 97.4 F 05/18/21 10:16 Pulse 85 05/18/21 10:16 Resp 83 H 05/18/21 10:16 BP 124/84 05/18/21 10:16 Pulse Ox 100 05/18/21 10:16 - Orders/Labs/Meds Orders: Active Orders 24 hr Category Date Time Status Communication Order [RC] ASDIRECTED Care 05/18/21 10:22 Active Communication Order [RC] ASDIRECTED Care 05/18/21 10:22 Active Communication Order [RC] ASDIRECTED Care 05/18/21 10:22 Active Communication Order [RC] PER UNIT ROUTINE Care 05/18/21 10:22 Active Peripheral IV Care [RC] . DIRECTED Care 05/18/21 10:22 Active Chest Abdomen Pelvis w Cont [CT] Stat Exams 05/18/21 12:23 Taken Sodium Chloride 0.9% [Normal Saline] 1,000 ml Med 05/18/21 10:30 Active IV ASDIRECTED Sodium Chloride 0.9% [Saline Flush] Med 05/18/21 10:21 Active 10 ml FLUSH ASDIRECTED PRN ED Antiemetic Medication Reflex [OM.PC] Stat Oth 05/18/21 10:30 Ordered Peripheral IV Insertion Adult [OM.PC] Stat Ot 05/18/21 10:22 Ordered Medication Orders Sodium Chloride (Normal Saline) 1,000 mls @ 150 mls/hr IV ASDIRECTED BG Last Admin: 05/18/21 10:35 Dose: 150 mls/hr Documented by: YONI Sodium Chloride (Sodium Chloride 0.9% 10 Ml Syringe) 10 ml FLUSH ASDIRECTED PRN PRN Reason: Keep Vein Open Last Admin: 05/18/21 10:41 Dose: 10 ml Documented by: SHAILA Labs: Laboratory Tests 05/18/21 05/18/21 05/18/21 Range/Units 10:15 10:15 12:11 WBC 4.80 (3.98-10.04) K/mm3 RBC 4.51 (3.98-5.22) M/mm3 Hgb 13.4 D (11.2-15.7) gm/dl Hct 40.6 (34.1-44.9) % MCV 90.0 (79.4-94.8) fl MCH 29.7 (25.6-32.2) pg MCHC 33.0 (32.2-35.5) g/dl RDW Std Deviation 42.5 (36.4-46.3) fL Plt Count 241 (182-369) K/mm3 MPV 9.9 (9.4-12.3) fl Neut % (Auto) 36.7 (34.0-71.1) % Lymph % (Auto) 47.7 (19.3-51.7) % [place] % (Auto) 11.7 (4.7-12.5) % Eos % (Auto) 3.3 (0.7-5.8) Baso % (Auto) 0.4 (0.1-1.2) % Neut # (Auto) 1.76 (1.56-6.13) K/mm3 Lymph # (Auto) 2.29 (1.18-3.74) K/mm3 [place] # (Auto) 0.56 H (0.24-0.36) K/mm3 Eos # (Auto) 0.16 (0.04-0.36) K/mm3 Baso # (Auto) 0.02 (0.01-0.08) K/mm3 Sodium 140 (136-145) mEq/L Potassium 4.0 (3.5-5.1) mEq/L Chloride 102 (98-107) mEq/L Carbon Dioxide 27 (21-32) mEq/L Anion Gap 15.0 (5-15) BUN 24 H (7-18) mg/dL Creatinine 0.8 (0.55-1.02) mg/dL Est Cr Clr Drug Dosing 90.90 mL/min Estimated GFR (MDRD) > 60 (>60) mL/min BUN/Creatinine Ratio 30.0 H (14-18) Glucose 92 (70-99) mg/dL Calcium 9.9 (8.5-10.1) mg/dL Magnesium 2.1 (1.8-2.4) mg/dL Total Bilirubin 0.4 (0.2-1.0) mg/dL AST 16 (15-37) U/L ALT 30 (14-59) U/L Alkaline Phosphatase 58 (46-116) U/L C-Reactive Protein <0.2 (<1.0) mg/dL Total Protein 7.9 (6.4-8.2) g/dl Albumin 4.6 (3.4-5.0) g/dl Globulin 3.3 gm/dL Albumin/Globulin Ratio 1.4 (1-2) Lipase 146 (73-393) U/L Urine Color Yellow (Yellow) Urine Appearance Clear (Clear) Urine pH 8.5 H (5.0-8.0) Ur Specific [place] 1.015 (1.005-1.030) Urine Protein 2+ H (Negative) Urine Glucose (UA) Negative (Negative) Urine Ketones Negative (Negative) Urine Occult Blood Negative (Negative) Urine Nitrite Negative (Negative) Urine Bilirubin Negative (Negative) Urine Urobilinogen 0.2 (0.2-1.0) Ur Leukocyte Esterase Negative (Negative) Urine RBC 0-5 (0-5) /hpf Urine WBC 0-5 (0-5) /hpf Ur Squamous Epith Cells 0-5 (0-5) /hpf Amorphous Sediment Few H (NOT SEEN) /hpf Urine Bacteria Few (FEW) /hpf Urine Mucus Few (FEW) /hpf Meds: Medications Generic Name Dose Route Start Last Admin Trade Name Arthur PRN Reason Stop Dose Admin Sodium Chloride 1,000 mls @ 150 mls/hr 05/18/21 10:30 05/18/21 10:35 Normal Saline IV 150 mls/hr ASDIRECTED BG Administration Sodium Chloride 10 ml 05/18/21 10:21 05/18/21 10:41 Sodium Chloride 0.9% 10 Ml Syringe FLUSH 10 ml ASDIRECTED PRN Administration Keep Vein Open Discontinued Medications Generic Name Dose Route Start Last Admin Trade Name Arthur PRN Reason Stop Dose Admin Hydromorphone HCl 0.5 mg 05/18/21 10:31 05/18/21 10:39 Hydromorphone 0.5 Mg/0.5 Ml Syringe IVPUSH 05/18/21 10:32 0.5 mg ONETIME ONE Administration Hydromorphone HCl 1 mg 05/18/21 12:51 05/18/21 12:55 Hydromorphone 1 Mg/Ml Syringe IVPUSH 05/18/21 12:52 1 mg ONETIME ONE Administration Sodium Chloride 100 mls @ 4 mls/sec 05/18/21 13:37 05/18/21 13:39 Normal Saline IV 05/18/21 13:38 4 mls/sec ONETIME ONE Administration Iopamidol 120 ml 05/18/21 13:36 Iopamidol 755 Mg/Ml 200 Ml Bottle IV 05/18/21 13:37 ONETIME ONE Iopamidol 120 ml 05/18/21 13:38 05/18/21 13:39 Iopamidol 755 Mg/Ml 100 Ml Bottle IVPUSH 05/18/21 13:39 120 ml ONETIME ONE Administration Ondansetron HCl 4 mg 05/18/21 10:30 05/18/21 10:37 Ondansetron 4 Mg/2 Ml Sdv IVPUSH 05/18/21 10:31 4 mg ONETIME ONE Administration - Re-Assessments/Exams Free Text/Narrative Re-Assessment/Exam: 05/18/21 14:53 I ordered an IV NS 1L bolus, labs, urine and a gallbladder US. I also gave her dilaudid and zofran 4mg IV. Her CBC, CMP and UA look good. Her US shows findings suspicious for small amount of non-occlusive thrombus within the proximal inferior vena cava. Small calcification felt to be parenchymal in locality within the right kidney. Other portions of the right upper quadrant abdominal US are unremarkable. I have ordered a CT angio of her chest and abdomen. The CT of her chest shows unremarkable CT angiogram of the chest. Specifically, no cardiac or IVC thrombus is seen. The CT of her abdomen and pelvis shows unremarkable CT angiogram of the abdomen and pelvis. Specifically no IVC thrombus is identified. She feels better but she is not happy. We do not have a diagnosis and she thought she had a blood clot. I will discharge her home and she wanted copies of the films. I will give then to her. Departure - Departure Time of Disposition: 15:00 Disposition: Home, Self-Care 01 Condition: Good Clinical Impression: Abdominal pain Qualifiers: Abdominal location: upper abdomen, unspecified Qualified Code(s): R10.10 - Upper abdominal pain, unspecified Back pain Qualifiers: Back pain location: thoracic back pain Chronicity: acute Back pain laterality: right Qualified Code(s): M54.6 - Pain in thoracic spine - Discharge Information *PRESCRIPTION DRUG MONITORING PROGRAM REVIEWED*: Not Applicable *COPY OF PRESCRIPTION DRUG MONITORING REPORT IN PATIENT DARLENE: Not Applicable Prescriptions: Hydrocodone/Acetaminophen [Hydrocodone-Acetamin 5-325 mg] 1 - 2 each PO Q6H PRN #15 tablet PRN Reason: Pain Referrals: PCP,Unknown [Primary Care Provider] - Forms: ED Department Discharge, ED Return to Work/School Form Additional Instructions: Take your medications as prescribed. Drink plenty of fluids. Try to avoid any fried, fatty foods. Take tylenol as needed for pain. If that does not help, try the hydrocodone. Follow up with your provider within a week. Please return if you are worse. Sepsis Event Note (ED) - Evaluation Sepsis Screening Result: No Definite Risk - Focused Exam Vital Signs: Vital Signs Temp Pulse Resp BP Pulse Ox 05/18/21 10:16 97.4 F 85 83 H 124/84 100 - My Orders Last 24 Hours: My Active Orders 05/18/21 10:21 Sodium Chloride 0.9% [Saline Flush] 10 ml FLUSH ASDIRECTED PRN 05/18/21 10:22 Communication Order [RC] ASDIRECTED Communication Order [RC] ASDIRECTED Communication Order [RC] ASDIRECTED Communication Order [RC] PER UNIT ROUTINE Peripheral IV Care [RC] . DIRECTED Peripheral IV Insertion Adult [OM.PC] Stat 05/18/21 10:30 Sodium Chloride 0.9% [Normal Saline] 1,000 ml IV ASDIRECTED ED Antiemetic Medication Reflex [OM.PC] Stat 05/18/21 12:23 Chest Abdomen Pelvis w Cont [CT] Stat - Assessment/Plan Last 24 Hours: My Active Orders 05/18/21 10:21 Sodium Chloride 0.9% [Saline Flush] 10 ml FLUSH ASDIRECTED PRN 05/18/21 10:22 Communication Order [RC] ASDIRECTED Communication Order [RC] ASDIRECTED Communication Order [RC] ASDIRECTED Communication Order [RC] PER UNIT ROUTINE Peripheral IV Care [RC] . DIRECTED Peripheral IV Insertion Adult [OM.PC] Stat 05/18/21 10:30 Sodium Chloride 0.9% [Normal Saline] 1,000 ml IV ASDIRECTED ED Antiemetic Medication Reflex [OM.PC] Stat 05/18/21 12:23 Chest Abdomen Pelvis w Cont [CT] Stat
[2021-05-18] MEDS ORDERED: Iopamidol 755 Mg/ML 200 ML Bottle IV ONE (13:36)
[2021-05-18] MEDS ORDERED: Sodium Chloride 0.9% 100 ML IV ONE (13:37)
[2021-05-18] MEDS ORDERED: Iopamidol 755 Mg/ML 100 ML Bottle IVPUSH ONE (13:38)
--- NOTE | 2021-05-19 08:22 | CT ---
CT chest Technique: Multiple axial sections were obtained from above the lung apices inferiorly through the lung bases. Intravenous contrast was utilized. Reconstructed coronal and sagittal images were obtained. Comparison: Prior chest CT study of 11/21/20. Findings: Thoracic aorta shows no aneurysm. Pulmonary artery shows no filling defects within the visualized pulmonary arteries. Mediastinum shows no adenopathy. No axillary adenopathy is seen. Lungs show no acute parenchymal change. No pleural effusions are seen. Heart size is normal. Bone window settings were reviewed which show no acute osseous finding. Impression: 1. Nothing acute is appreciated on CT study of the chest. Diagnostic code #1 I agree with preliminary report from [facility], finalized on 05/18/21, 2:49 PM [employer], code 1 CT abdomen and pelvis Technique: Multiple axial sections were obtained from above the dome of the diaphragm inferiorly through the pubic symphysis. Intravenous contrast was utilized during the arterial phase. Delayed images were also obtained during the portal phase. Reconstructed coronal and sagittal images were obtained. Comparison: No prior abdominal or pelvic CT is available, prior limited abdominal ultrasound performed earlier on the same day is available (12:07 PM). Findings: Liver shows a low density lesion within the dome of the right lobe measuring 2.3 cm. This abnormality shows slight enhancement and becomes less apparent on the delayed images. This is most likely due to a small hemangioma. Cyst is noted within the left lobe of the liver measuring 1.2 cm. Liver is otherwise unremarkable. Gallbladder shows no calcified gallstones. Spleen size is normal. Pancreas appears within normal limits. Adrenal glands show no nodule. Kidneys show symmetric contrast enhancement. No hydronephrosis or mass is seen. Delayed images show contrast within the ureters and within the bladder. Abdominal aorta appears within normal limits. Celiac axis, superior mesenteric arteries and renal arteries appear within normal limits. Inferior mesenteric artery also appears within normal limits. Common iliac arteries as well as internal and external iliac arteries also appear within normal limits. Delayed images shows contrast within the inferior vena cava. No definite findings of inferior vena cava thrombosis is seen as suggested on the ultrasound exam and was likely artifact on ultrasound study. No retroperitoneal adenopathy is seen. No mesenteric abnormalities are seen. No pelvic mass or adenopathy is seen. Prior hysterectomy is present. No free fluid or inflammatory change is seen. Appendix is not definitely visualized. Bone window settings were reviewed. No acute osseous abnormality is appreciated. Impression: 1. Probable hemangioma within the dome of the right lobe of the liver and cyst within the left lobe of the liver. 2. Abdominal aorta and branch vessels show no abnormality. Inferior vena cava shows enhancement on delayed images with no findings of inferior vena cava thrombosis as questioned on recent ultrasound. Ultrasound study was likely due to artifact. 3. No acute abnormality is appreciated on CT study of the abdomen and pelvis. Diagnostic code #2 I mostly agree with preliminary report from [facility] (additional liver findings as noted above), finalized on 05/18/21, 2:52 PM [employer], code 2
== END 2021-05-18 15:23 | disposition home or self-care (01) ==
LOC: JD.ED 09:55
DX: R10.11 Right upper quadrant pain (principal); M54.6 Pain in thoracic spine; I10 Essential (primary) hypertension; Z72.0 Tobacco use; Z86.718 Personal history of other venous thrombosis and embolism; Z91.018 Allergy to other foods; Z79.01 Long term (current) use of anticoagulants
CPT/HCPCS: 36415; 71260; 71260-26; 74177; 74177-26; 76705; 76705-26; 80053; 81001; 83690; 83735; 85025; 86140; 96374; 96375; 96376; 99284-25; J1170; J2405; J7030; Q9967

== ENCOUNTER 2021-09-14 14:33 | Emergency (ER) | payer BC ==
[2021-09-14] MEDS ORDERED: Sodium Chloride 0.9% 1,000 ML IV ONE (15:13)
[2021-09-14] MEDS ORDERED: Sodium Chloride 0.9% 10 ML Syringe FLUSH PRN (15:13)
== END 2021-09-14 17:37 | disposition home or self-care (01) ==
LOC: JD.ED 14:33
DX: R20.2 Paresthesia of skin (principal); T50.Z95A Adverse effect of other vaccines and biological substances, initial encounter; I10 Essential (primary) hypertension; Z91.018 Allergy to other foods; Z79.01 Long term (current) use of anticoagulants; Z72.0 Tobacco use; Z20.822 Contact with and (suspected) exposure to COVID-19
CPT/HCPCS: 36415; 80053; 84443; 84484; 85007; 85027; 87635; 93005; 99284; J7030; 93010; U0002

== ENCOUNTER 2021-10-29 07:50 | Emergency (ER) | payer BC ==
[2021-10-29] MEDS ORDERED: Lactated Ringers 1,000 ML IV ONE (08:08)
[2021-10-29] MEDS ORDERED: Metoclopramide 10 MG/2 ML SDV IVPUSH ONE (08:45)
[2021-10-29] MEDS ORDERED: diphenhydrAMINE 50 MG/ML SDV IVPUSH ONE (08:45)
[2021-10-29] MEDS ORDERED: Acetaminophen 325 MG Tab PO ONE (08:45)
[2021-10-29] MEDS ORDERED: Sodium Chloride 0.9% 10 ML Syringe FLUSH PRN (08:54)
[2021-10-29] MEDS ORDERED: Iopamidol 755 Mg/ML 100 ML Bottle IVPUSH ONE (08:54)
[2021-10-29] MEDS ORDERED: Sodium Chloride 0.9% 100 ML IV SCH (09:00)
== END 2021-10-29 11:40 | disposition home or self-care (01) ==
LOC: JD.ED 07:50
DX: R20.2 Paresthesia of skin (principal); G43.909 Migraine, unspecified, not intractable, without status migrainosus; I10 Essential (primary) hypertension; Z91.018 Allergy to other foods; Z86.16 Personal history of COVID-19; Z79.01 Long term (current) use of anticoagulants
CPT/HCPCS: 36415; 70450; 70496; 70498; 70551; 80053; 82947; 85025; 85610; 93005; 96374; 96375; 99285; A9270; J1200; J2765; J3490; J7120; Q9967

== ENCOUNTER 2022-01-22 12:50 | Emergency (ER) | payer BC ==
[2022-01-22] MEDS ORDERED: Lactated Ringers 1,000 ML IV ONE (13:58)
[2022-01-22] MEDS ORDERED: Prochlorperazine 10 MG/2 ML SDV IVPUSH ONE (13:58)
[2022-01-22] MEDS ORDERED: diphenhydrAMINE 50 MG/ML SDV IVPUSH ONE (13:58)
== END 2022-01-22 15:32 | disposition home or self-care (01) ==
LOC: JD.ED 12:50
DX: G43.909 Migraine, unspecified, not intractable, without status migrainosus (principal); I10 Essential (primary) hypertension; Z91.018 Allergy to other foods; Z86.16 Personal history of COVID-19
CPT/HCPCS: 96361; 96374; 96375; 99283; J0780; J1200; J7120

== ENCOUNTER 2022-02-24 09:08 | Emergency (ER) | payer BC ==
[2022-02-24] MEDS ORDERED: Metoclopramide 10 MG/2 ML SDV IVPUSH ONE (09:44)
[2022-02-24] MEDS ORDERED: HYDROmorphone 0.5 MG/0.5 ML Syringe IVPUSH ONE (09:44)
[2022-02-24] MEDS ORDERED: Dextrose 5%-Lactated Ringers 1,000 ML IV SCH (09:45)
[2022-02-24] MEDS ORDERED: Albuterol/Ipratropium 3.0-0.5 MG/3 ML Neb Soln NEB PRN (09:49)
[2022-02-24 10:25] LABS: ESTIMATED GFR 95 mL/min (>60)
[2022-02-24] MEDS ORDERED: Rivaroxaban 10 MG Tab PO ONE (12:15)
== END 2022-02-24 12:39 | disposition home or self-care (01) ==
LOC: JD.ED 09:08
DX: J20.9 Acute bronchitis, unspecified (principal); M25.511 Pain in right shoulder; J06.9 Acute upper respiratory infection, unspecified; I10 Essential (primary) hypertension; F17.210 Nicotine dependence, cigarettes, uncomplicated; Z91.018 Allergy to other foods; Z79.899 Other long term (current) drug therapy; Z86.16 Personal history of COVID-19; Z90.49 Acquired absence of other specified parts of digestive tract
CPT/HCPCS: 36415; 71045; 80053; 83735; 83880; 84484; 85025; 85379; 85610; 85730; 86140; 93005; 94640; 96361; 96374; 96375; 99285; A9270; J1170; J2765; J7121; J7620-GY

== ENCOUNTER 2022-03-31 13:11 | Emergency (ER) | payer BC ==
[2022-03-31] MEDS ORDERED: Sodium Chloride 0.9% 10 ML Syringe FLUSH PRN (14:21)
[2022-03-31 15:37] LABS: HEMOGLOBIN A1C 5.7 %
[2022-03-31 15:39] LABS: ESTIMATED GFR 95 mL/min (>60)
== END 2022-03-31 17:54 | disposition home or self-care (01) ==
LOC: JD.ED 13:11
DX: R55 Syncope and collapse (principal); Z91.018 Allergy to other foods; Z86.16 Personal history of COVID-19
CPT/HCPCS: 36415; 71045; 71045-26; 80053; 81001; 81025; 82947; 83036; 83735; 84484; 85025; 85379; 86140; 93005; 93225; 93226; 99285

== ENCOUNTER 2022-06-23 16:02 | Emergency (ER) | payer BC, OTHER ==
[2022-06-23] MEDS ORDERED: Ibuprofen 600 MG Tab PO ONE (18:57)
[2022-06-23] MEDS ORDERED: Bupivacaine 0.5% 10 ML SDV INJECT ONE (18:59)
[2022-06-23] MEDS ORDERED: Lidocaine 1% 10 ML MDV INJECT ONE (18:59)
== END 2022-06-23 20:55 | disposition home or self-care (01) ==
LOC: JD.ED 16:02
DX: S61.012A Laceration without foreign body of left thumb without damage to nail, initial encounter (principal); Z91.018 Allergy to other foods; Z79.899 Other long term (current) drug therapy; Z86.16 Personal history of COVID-19; Z90.49 Acquired absence of other specified parts of digestive tract; Z90.710 Acquired absence of both cervix and uterus; Z87.891 Personal history of nicotine dependence; W26.8XXA Contact with other sharp object(s), not elsewhere classified, initial encounter; Y99.0 Civilian activity done for income or pay
CPT/HCPCS: 12001; 73140; 99283; A9270; J3490

== ENCOUNTER 2022-11-04 05:53 | Emergency (ER) | payer BC, OTHER ==
[2022-11-04] MEDS ORDERED: Ondansetron 4 MG/2 ML SDV IVPUSH ONE (06:23)
[2022-11-04] MEDS ORDERED: Sodium Chloride 0.9% 10 ML Syringe FLUSH PRN ×2 (06:23→07:56)
[2022-11-04] MEDS ORDERED: Sodium Chloride 0.9% 1,000 ML IV STA (06:23)
[2022-11-04] MEDS ORDERED: HYDROmorphone 0.5 MG/0.5 ML Syringe IVPUSH ONE ×2 (06:25→06:42)
[2022-11-04] MEDS ORDERED: Iopamidol 612 MG/ML 100 ML Bottle IVPUSH ONE ×2 (06:36→07:56)
[2022-11-04] MEDS ORDERED: Ondansetron 4 MG/2 ML SDV ONE (06:51)
[2022-11-04] MEDS ORDERED: HYDROmorphone 0.5 MG/0.5 ML Syringe ONE (06:52)
[2022-11-04] MEDS ORDERED: Sodium Chloride 0.9% 1,000 ML ONE (06:52)
[2022-11-04 08:04] LABS: BASOPHILS ABSOLUTE AUTO 0.03 K/mm3 (0.01-0.08); BASOPHILS PERCENT AUTO 0.7 % (0.1-1.2); EOSINOPHILS ABSOLUTE AUTO 0.14 K/mm3 (0.04-0.36); EOSINOPHILS PERCENT AUTO 3.3 (0.7-5.8); HEMATOCRIT 39.3 % (34.1-44.9); HEMOGLOBIN 12.5 gm/dl (11.2-15.7); IMMATURE GRAN ABSOLUTE AUTO 0.01 K/mm3 (0.00-0.10); IMMATURE GRAN PERCENT AUTO 0.2 % (<=1.0); LYMPHOCYTES ABSOLUTE AUTO 1.74 K/mm3 (1.18-3.74); LYMPHOCYTES PERCENT AUTO 40.7 % (19.3-51.7); MEAN CORPUSCULAR HEMOGLOBIN 28.8 pg (25.6-32.2); MEAN CORPUSCULAR HGB CONC 31.8 g/dl (32.2-35.5); MEAN CORPUSCULAR VOLUME 90.6 fl (79.4-94.8); MEAN PLATELET VOLUME 10.5 fl (9.4-12.3); MONOCYTES ABSOLUTE AUTO 0.54 K/mm3 (0.24-0.36); MONOCYTES PERCENT AUTO 12.6 % (4.7-12.5); NEUTROPHILS ABSOLUTE AUTO 1.82 K/mm3 (1.56-6.13); NEUTROPHILS PERCENT AUTO 42.5 % (34.0-71.1); PLATELET COUNT,PLT 262 K/mm3 (182-369); RED BLOOD CELL COUNT 4.34 M/mm3 (3.98-5.22); WHITE BLOOD CELL COUNT,WBC 4.28 K/mm3 (3.98-10.04)
[2022-11-04 08:15] LABS: APPEARANCE,URINE CLEAR (Clear); BILIRUBIN,URINE NEGATIVE (Negative); COLOR,URINE YELLOW (Yellow); GLUCOSE,URINE NEGATIVE (Negative); KETONES,URINE NEGATIVE (Negative); LEUKOCYTE ESTERASE,URINE NEGATIVE (Negative); NITRITE,URINE NEGATIVE (Negative); OCCULT BLOOD,URINE NEGATIVE (Negative); PROTEIN,URINE NEGATIVE (Negative); UROBILINOGEN,URINE 0.2 (0.2-1.0)
[2022-11-04 08:15] LABS: A/G RATIO 1.2 (1-2); ALBUMIN 3.7 g/dl (3.4-5.0); ANION GAP 12.1 (5-15); BILIRUBIN TOTAL 0.2 mg/dL (0.2-1.0); BUN/CREATININE RATIO 21.3 (14-18); CALCIUM 9.5 mg/dL (8.5-10.1); CREATININE 0.8 mg/dL (0.55-1.02); EST CRCL DRUG DOSING (CG) 96.71 mL/min; POTASSIUM,K 4.1 mEq/L (3.5-5.1); PROTEIN TOTAL,TP 6.9 g/dl (6.4-8.2)
[2022-11-04 08:59] LABS: AMORPHOUS SEDIMENT,URINE FEW /hpf (NOT SEEN); BACTERIA,URINE FEW /hpf (FEW); EPITHELIAL CELLS,URINE NOT SEEN /hpf (0-5); MUCUS,URINE MODERATE /hpf (FEW); RBC,URINE 0-5 /hpf (0-5); WBC,URINE NOT SEEN /hpf (0-5)
== END 2022-11-04 10:22 | disposition home or self-care (01) ==
LOC: JD.ED 05:53
DX: K62.89 Other specified diseases of anus and rectum (principal); K59.39 Other megacolon; I10 Essential (primary) hypertension; F17.210 Nicotine dependence, cigarettes, uncomplicated; Z86.711 Personal history of pulmonary embolism; Z86.16 Personal history of COVID-19; Z79.01 Long term (current) use of anticoagulants; Z91.018 Allergy to other foods; Z79.899 Other long term (current) drug therapy
CPT/HCPCS: 36415; 74177; 80053; 81001; 83690; 84703; 85025; 96374; 96375; 99284; J1170; J2405; J3490; J7030; Q9967

== ENCOUNTER 2023-01-26 10:25 | Emergency (ER) | payer OTHER ==
[2023-01-26] MEDS ORDERED: Ketorolac 30 MG/ML SDV IVPUSH ONE (11:11)
[2023-01-26] MEDS ORDERED: Metoclopramide 10 MG/2 ML SDV IVPUSH ONE (11:11)
[2023-01-26] MEDS ORDERED: Sodium Chloride 0.9% 1,000 ML IV STA (11:11)
[2023-01-26] MEDS ORDERED: diphenhydrAMINE 50 MG/ML SDV IVPUSH ONE (11:11)
== END 2023-01-26 13:28 | disposition home or self-care (01) ==
LOC: JD.ED 10:25
DX: G43.909 Migraine, unspecified, not intractable, without status migrainosus (principal); I10 Essential (primary) hypertension; Z86.16 Personal history of COVID-19; Z91.018 Allergy to other foods; Z87.891 Personal history of nicotine dependence; Z79.01 Long term (current) use of anticoagulants
CPT/HCPCS: 96374; 96375; 99283; J1200; J1885; J2765; J7030

== ENCOUNTER 2023-02-18 08:24 | Day surgery (SDC) | payer OTHER ==
[~2023-02-18 08:24] MED LIST: Lactated Ringers 1,000 ML IV SCH; Sodium Chloride 0.9% 10 ML Syringe FLUSH PRN; Sodium Chloride 0.9% 10 ML Syringe FLUSH SCH
[2023-02-18] MEDS ORDERED: Propofol 200 MG/20 ML SDV ONE ×3 (08:46→09:46)
[2023-02-18] MEDS ORDERED: Lidocaine 1% 6 ML ONE (08:48)
[2023-02-18] MEDS ORDERED: Bupivacaine 0.5% 30 ML SDV ONE (09:52)
== END 2023-02-18 10:45 | disposition home or self-care (01) ==
LOC: JD.SDS 08:24
PROVIDERS: ATTEND Surgery
DX: K31.89 Other diseases of stomach and duodenum (principal); K44.9 Diaphragmatic hernia without obstruction or gangrene; K29.80 Duodenitis without bleeding; K57.30 Diverticulosis of large intestine without perforation or abscess without bleeding; K64.4 Residual hemorrhoidal skin tags; K64.8 Other hemorrhoids; F41.9 Anxiety disorder, unspecified; F33.9 Major depressive disorder, recurrent, unspecified; Z79.01 Long term (current) use of anticoagulants; Z79.899 Other long term (current) drug therapy; Z87.891 Personal history of nicotine dependence; Z91.048 Other nonmedicinal substance allergy status
CPT/HCPCS: 43239; 45378; 46221; J2704; J3490; J7120; 00813

== ENCOUNTER 2023-04-25 19:57 | Emergency (ER) | payer OTHER ==
[2023-04-25] MEDS ORDERED: Sodium Chloride 0.9% 10 ML Syringe FLUSH PRN (20:37)
[2023-04-25] MEDS ORDERED: Ketorolac 30 MG/ML SDV IVPUSH ONE (20:37)
== END 2023-04-25 22:00 | disposition home or self-care (01) ==
LOC: JD.ED 19:57
DX: M62.838 Other muscle spasm (principal); M43.6 Torticollis; I10 Essential (primary) hypertension; Z86.16 Personal history of COVID-19; Z90.49 Acquired absence of other specified parts of digestive tract; Z79.899 Other long term (current) drug therapy; Z91.018 Allergy to other foods; Z90.710 Acquired absence of both cervix and uterus
CPT/HCPCS: 96374; 96375; 99283; J1885; J3360; J3490

== ENCOUNTER 2023-07-05 04:58 | Emergency (ER) | payer OTHER ==
[2023-07-05] MEDS ORDERED: Ketorolac 15 MG/ML SDV IM ONE (05:23)
[2023-07-05] MEDS ORDERED: Sodium Chloride 0.9% 1,000 ML IV ONE (05:23)
[2023-07-05] MEDS ORDERED: Ondansetron 4 MG/2 ML SDV IVPUSH ONE (05:23)
[2023-07-05 05:30] LABS: APPEARANCE,URINE CLOUDY (Clear); BILIRUBIN,URINE NEGATIVE (Negative); COLOR,URINE LIGHT YELLOW (Yellow); GLUCOSE,URINE NEGATIVE (Negative); KETONES,URINE NEGATIVE (Negative); LEUKOCYTE ESTERASE,URINE 1+ (Negative); NITRITE,URINE NEGATIVE (Negative); OCCULT BLOOD,URINE 3+ (Negative); PH,URINE 8.5 (5.0-8.0); PROTEIN,URINE 1+ (Negative); UROBILINOGEN,URINE 0.2 (0.2-1.0)
[2023-07-05 05:36] LABS: RBC,URINE TOO NUMEROUS TO CNT /hpf (0-5); SQUAMOUS EPITHELIAL CELLS,UR 0-5 /hpf (0-5)
[2023-07-05 05:37] LABS: BACTERIA,URINE FEW /hpf (FEW); MUCUS,URINE NOT SEEN /hpf (FEW)
[2023-07-05 05:43] LABS: BASOPHILS ABSOLUTE AUTO 0.1 K/mm3 (0.0-0.2); BASOPHILS PERCENT AUTO 0.6 % (0.0-1.0); EOSINOPHILS ABSOLUTE AUTO 0.2 K/mm3 (0.0-0.4); EOSINOPHILS PERCENT AUTO 1.9 % (0.0-6.0); HEMATOCRIT 38.5 % (37.0-47.0); HEMOGLOBIN 12.2 gm/dl (12.0-16.0); IMMATURE GRAN ABSOLUTE AUTO 0.02 K/mm3 (0.00-0.05); IMMATURE GRAN PERCENT AUTO 0.2 % (0.0-0.4); LYMPHOCYTES ABSOLUTE AUTO 1.5 K/mm3 (1.0-4.8); LYMPHOCYTES PERCENT AUTO 17.3 % (24.0-44.0); MEAN CORPUSCULAR HEMOGLOBIN 28.1 pg (28.0-32.0); MEAN CORPUSCULAR HGB CONC 31.7 g/dl (32.0-36.0); MEAN CORPUSCULAR VOLUME 88.7 fl (83.0-99.0); MEAN PLATELET VOLUME 9.2 fl (9.4-12.3); MONOCYTES ABSOLUTE AUTO 0.6 K/mm3 (0.0-0.8); NEUTROPHILS ABSOLUTE AUTO 6.2 K/mm3 (1.8-7.7); PLATELET COUNT,PLT 257 K/mm3 (150-400); RED BLOOD CELL COUNT 4.34 M/mm3 (4.10-5.30); WHITE BLOOD CELL COUNT,WBC 8.55 K/mm3 (3.9-11.3)
[2023-07-05 06:04] LABS: A/G RATIO 1.1 (1-2); ALBUMIN 3.5 g/dl (3.4-5.0); ANION GAP 11.4 (5-15); BILIRUBIN TOTAL 0.4 mg/dL (0.2-1.0); BUN/CREATININE RATIO 17.5 (14-18); CALCIUM 9.1 mg/dL (8.5-10.1); CREATININE 0.8 mg/dL (0.55-1.02); EST CRCL DRUG DOSING (CG) 89.08 mL/min; POTASSIUM,K 4.4 mEq/L (3.5-5.1); PROTEIN TOTAL,TP 6.6 g/dl (6.4-8.2)
[2023-07-05] MEDS ORDERED: Cephalexin 500 MG Cap PO ONE (06:37)
== END 2023-07-05 06:49 | disposition home or self-care (01) ==
LOC: JD.ED 04:58
DX: R31.9 Hematuria, unspecified (principal); N39.0 Urinary tract infection, site not specified; B96.89 Other specified bacterial agents as the cause of diseases classified elsewhere; I10 Essential (primary) hypertension; F17.210 Nicotine dependence, cigarettes, uncomplicated; Z86.16 Personal history of COVID-19; Z86.711 Personal history of pulmonary embolism; Z79.899 Other long term (current) drug therapy; Z91.018 Allergy to other foods; Z79.01 Long term (current) use of anticoagulants
CPT/HCPCS: 36415; 74176; 80053; 81001; 81025; 83615; 85025; 96372; 99284; A9270; J1885; J7030

== ENCOUNTER 2024-11-15 20:46 | Emergency (ER) | payer BC, OTHER | END 2024-11-15 21:32 | disposition home or self-care (01) | LOC: JD.ED 20:46 | DX: M79.621 Pain in right upper arm (principal); I10 Essential (primary) hypertension; Z86.16 Personal history of COVID-19; Z90.49 Acquired absence of other specified parts of digestive tract; Z90.710 Acquired absence of both cervix and uterus; Z91.018 Allergy to other foods; Z79.01 Long term (current) use of anticoagulants; Z79.899 Other long term (current) drug therapy | CPT/HCPCS: 99283 ==